=== PATIENT | female | born 1935 | race Caucasian/White ===

== ENCOUNTER 2016-05-08 14:57 | Emergency (ER) | payer MEDICARE ==
[~2016-05-08] VITALS: Ht 154.9 cm; Wt 65.8 kg
[2016-05-08 15:04] VITALS: BP 139/64; PULSE 55; RESP 18; TEMP 98.7; O2SAT 99
[2016-05-08] MEDS ORDERED: NACL 0.9% 1,000 ML IV ONE (15:15)
[2016-05-08 15:36] LABS: HEMATOCRIT 24.7 % (36-48); MEAN CORPUSCULAR HEMOGLOBIN 24 pg (27-31); MEAN CORPUSCULAR HGB CONC 32 % (32-36); MEAN CORPUSCULAR VOLUME 76 fL (79.0-98.0); PLATELET COUNT (AUTO) 393 K/uL (130-430); RED BLOOD CELL COUNT(AUTO) 3.25 MIL/uL (4.2-6.2); RED CELL DISTRIBUTION WIDTH 15.2 % (9.0-15.0); WHITE BLOOD COUNT (AUTO) 5.9 K/uL (4.8-10.8)
[2016-05-08 15:39] LABS: ANION GAP 6 (5-15); CHLORIDE 97 mmol/L (98-107); CREATININE 1.52 mg/dL (0.55-1.30); GLUCOSE 110 mg/dL (70-99); POTASSIUM 4.8 mmol/L (3.5-5.1); SODIUM SERUM 128 mmol/L (136-145); UREA NITROGEN, BLOOD 25 mg/dL (8-21)
[2016-05-08 15:43] LABS: ALANINE AMINOTRANSFERASE 17 U/L (12-78); ALBUMIN 3.3 g/dL (3.4-4.8); ASPARTATE AMINOTRANSFERASE 15 U/L (10-37); HEMOGLOBIN 7.8 g/dL (12.0-16.0); TOTAL BILIRUBIN 0.3 mg/dL (0.0-1.0); TOTAL PROTEIN, SERUM 6.2 g/dL (6.4-8.3)
[2016-05-08 15:52] LABS: BAND % (MANUAL) 0 % (0-6); BASOPHILS % (MANUAL) 0 % (0-2); EOSINOPHILS % (MANUAL) 1 % (0-7); LYMPHOCYTES % (MANUAL) 20 % (20-46); MONOCYTES % (MANUAL) 17 % (0-11)
[2016-05-08] MEDS ORDERED: PROCHLORPERAZINE EDISYLATE 10 MG/2 ML VIAL IVP ONE (17:15)
[2016-05-08] MEDS ORDERED: MORPHINE 4 MG/ML INJ. SYRINGE IVP ONE (17:15)
[2016-05-08] MEDS ORDERED: cloNIDine HCL 0.1 MG TABLET PO ONE (17:15)
[2016-05-08] MEDS ORDERED: hydrALAZINE HCL 20 MG/ML VIAL IVP ONE (18:15)
[2016-05-08] MEDS ORDERED: KETOROLAC TROMETHAMINE 30 MG VIAL IVP ONE (18:45)
[2016-05-08] MEDS ORDERED: ONDANSETRON HCL 4 MG/2 ML VIAL IVP ONE (18:45)
[2016-05-08 20:57] VITALS: BP 143/64; PULSE 51; RESP 16; TEMP 98.1; O2SAT 100
[2016-05-09 02:13] LABS: BILIRUBIN,URINE NEGATIVE (NEGATIVE); BLOOD, URINE NEGATIVE (NEGATIVE); CLARITY/URINE CLOUDY (CLEAR); COLOR,URINE YELLOW (YELLOW); GLUCOSE,URINE NEGATIVE (NEGATIVE); KETONES,URINE NEGATIVE (NEGATIVE); LEUKOCYTE ESTERASE ,URINE TRACE (NEGATIVE); NITRITE, URINE NEGATIVE (NEGATIVE); PH,URINE 6.5 (5.0-8.0); PROTEIN URINE NEGATIVE (NEGATIVE); UROBILINOGEN,URINE 0.2 (0.2-1.0)
[2016-05-09 02:14] LABS: RBC,URINE 0-3 /HPF (0-3)
[2016-05-09 02:15] LABS: BACTERIA,URINE MODERATE /HPF (None Seen); MUCUS,URINE None Seen /LPF (None Seen)
== END 2016-05-08 20:57 | disposition short-term general hospital (02) ==
LOC: SED 14:57
DX: I44.7 Left bundle-branch block, unspecified (principal); I16.0 Hypertensive urgency; D50.9 Iron deficiency anemia, unspecified; N28.9 Disorder of kidney and ureter, unspecified; E87.1 Hypo-osmolality and hyponatremia; I10 Essential (primary) hypertension; E78.5 Hyperlipidemia, unspecified
CPT/HCPCS: 36415; 70450; 71010; 80053; 81000; 82272; 83735; 84484; 85007; 85027; 87086; 93005; 96361; 96374; 96375; 99291; J0360; J0780; J1885; J2270; J2405; J7030

== ENCOUNTER 2016-08-12 13:21 | Emergency (ER) | payer MEDICARE ==
[~2016-08-12] VITALS: Ht 152.4 cm; Wt 59.0 kg
[2016-08-12] MEDS ORDERED: NACL 0.9% 1,000 ML IV SCH (13:27)
[2016-08-12 13:40] VITALS: BP_SYST 130
[2016-08-12] MEDS ORDERED: KETOROLAC TROMETHAMINE 15 MG VIAL IVP ONE (14:15)
[2016-08-12 14:17] LABS: BASOPHILS # (AUTO) 0.1 K/uL (0.0-0.2); BASOPHILS % (AUTO) 0.8 % (0.0-2.0); EOSINOPHILS # (AUTO) 0.3 K/uL (0.0-0.4); EOSINOPHILS % (AUTO) 5.4 % (0.0-4.0); HEMATOCRIT 28.8 % (36-48); HEMOGLOBIN 9.4 g/dL (12.0-16.0); LYMPHOCYTES # (AUTO) 0.6 K/uL (1.0-5.5); MEAN CORPUSCULAR HEMOGLOBIN 27 pg (27-31); MEAN CORPUSCULAR HGB CONC 33 % (32-36); MEAN CORPUSCULAR VOLUME 81 fL (79.0-98.0); MONOCYTES # (AUTO) 0.7 K/uL (0.0-1.0); NEUTROPHILS # (AUTO) 4.6 K/uL (1.8-7.7); NEUTROPHILS % (AUTO) 73.8 % (40.0-70.0); PLATELET COUNT (AUTO) 356 K/uL (130-430); RED BLOOD CELL COUNT(AUTO) 3.54 MIL/uL (4.2-6.2); RED CELL DISTRIBUTION WIDTH 21.7 % (9.0-15.0); WHITE BLOOD COUNT (AUTO) 6.3 K/uL (4.8-10.8)
[2016-08-12 14:25] LABS: ANION GAP 7 (5-15); CALCIUM 8.3 mg/dL (8.4-11.0); CHLORIDE 101 mmol/L (98-107); GLUCOSE 109 mg/dL (70-99); POTASSIUM 4.3 mmol/L (3.5-5.1); SODIUM SERUM 137 mmol/L (136-145); UREA NITROGEN, BLOOD 20 mg/dL (8-21)
[2016-08-12 14:30] LABS: PROTHROMBIN TIME 10.7 SECS (9.5-12.5)
[2016-08-12 15:08] LABS: BILIRUBIN,URINE NEGATIVE (NEGATIVE); BLOOD, URINE NEGATIVE (NEGATIVE); CLARITY/URINE CLEAR (CLEAR); COLOR,URINE YELLOW (YELLOW); GLUCOSE,URINE NEGATIVE (NEGATIVE); KETONES,URINE NEGATIVE (NEGATIVE); LEUKOCYTE ESTERASE ,URINE TRACE (NEGATIVE); NITRITE, URINE NEGATIVE (NEGATIVE); PROTEIN URINE TRACE (NEGATIVE); UROBILINOGEN,URINE 0.2 (0.2-1.0)
[2016-08-12 15:17] LABS: BACTERIA,URINE FEW /HPF (None Seen); MUCUS,URINE None Seen /LPF (None Seen); RBC,URINE NONE SEEN /HPF (0-3)
[2016-08-12] MEDS ORDERED: CEPHALEXIN 500 MG CAPSULE PO ONE (15:30)
[2016-08-12] MEDS ORDERED: CIPROFLOXACIN HCL 500 MG TABLET PO ONE (15:45)
[2016-08-12] MEDS ORDERED: MORPHINE 2 MG/ML INJ. SYRINGE IVP ONE (17:30)
[2016-08-12] MEDS ORDERED: ONDANSETRON HCL 4 MG/2 ML VIAL IVP ONE (17:30)
[2016-08-12 17:54] VITALS: BP_SYST 137
== END 2016-08-12 18:43 | disposition short-term general hospital (02) ==
LOC: SED 13:21
DX: I95.9 Hypotension, unspecified (principal); R55 Syncope and collapse; I10 Essential (primary) hypertension; E78.00 Pure hypercholesterolemia, unspecified
CPT/HCPCS: 36415; 71010; 73030; 80048; 81000; 83605; 83880; 84484; 85025; 85610; 85730; 87040; 87086; 93005; 96374; 96375; 99285; J1885; J2270